=== PATIENT | female | born 1945 | race Caucasian/White ===

== ENCOUNTER 2016-09-30 13:40 | Inpatient (IN) | payer MEDICARE, OTHER ==
[~2016-09-30 13:40] MED LIST: ASPIRIN EC81 MG PO; CALCIUM CARBON500 M2 PO; FISH OIL 1,0001 EA10 PO; HYDROCODON-ACE1 EA16 PO; LYSINE500 M3 PO; MOBIC7.5 M2 PO; MULTIVITAMINS1 EAC6 PO; OMEGA-3 + VITA1 EAC2 PO; OMEPRAZOLE20 M3 PO; OXYCODONE HCL5 M1 PO; POTASSIUM CHLO10 ME2 PO; SENOKOT-S TABL1 EACH PO; SUPER B COMPLE150 M1 PO; TYLENOL325 M2 PO; ULTRAM50 M1 PO; VITAMIN B-1100 M3 PO; VITAMIN B-650 M2 PO; VITAMIN B125000 MCG; VITAMIN B125000 MCG PO; VITAMIN C500 M3 PO; VITAMIN D31000 UNI3 PO; XARELTO10 M1 PO
[2016-09-30 15:45] LABS: BASO % 0.8 % (0-2); BASO ABSOLUTE COUNT 0.1 tho/cmm (0.0-0.2); EOS % 1.8 % (0-7); EOSINOPHIL ABSOLUTE COUNT 0.2 tho/cmm (0.0-0.7); HCT-HEMATOCRIT 34.5 % (34.0-49.0); HGB-HEMOGLOBIN 11.8 gm/dl (12.0-15.5); IMMATURE GRANULOCYTES ABSOLUTE 0.01 tho/cmm (0-0.03); IMMATURE GRANULOCYTES PERCENT 0.1 % (0-0.3); LYMPH % 20.3 % (20-45); MCH (MEAN CORPUSCULAR HGB) 31.6 pg (28.0-32.0); MCHC MEAN CORPUSCULAR HGB CONC 34.2 % (32.0-36.0); MCV (MEAN CELL VOLUME) 92.5 fl (82.0-96.0); MEAN PLATELET VOLUME 11.8 cmc (9.4-12.4); MONO % 14.1 % (0-12); MONOCYTE ABSOLUTE COUNT 1.4 tho/cmm (0.0-1.2); NEUTROPHIL ABSOLUTE COUNT 6.2 tho/cmm (1.6-8.0); NEUTROPHIL-AUTOMATED 6.2 tho/cmm (1.6-8.0); NEUTROPHILS % 62.9 % (40-80); PLATELET COUNT 257 tho/cmm (150-450); RED BLOOD COUNT 3.73 mil/cmm (4.00-5.20); RED CELL DISTRIBUTION WIDTH 14.1 % (12.4-16.4); WHITE BLOOD COUNT 9.9 tho/cmm (4.0-10.0)
[2016-09-30 15:48] LABS: INR 1.2 INR (0.9-1.1); PROTHROMBIN TIME 13.6 SECONDS (9.0-13.6)
[2016-09-30 15:56] LABS: ANION GAP 12 mmol/L (0-20); BLOOD UREA NITROGEN 15 mg/dl (6-24); CALCIUM 8.6 mg/dl (8.5-10.5); CARBON DIOXIDE-VENOUS 28 mmol/L (22-32); CHLORIDE 103 mmol/l (96-110); CREATININE 0.81 mg/dl (0.50-1.10); GLUCOSE 173 mg/dL (70-110); POTASSIUM 3.5 mmol/L (3.7-5.1); SODIUM 139 mmol/L (135-145); eGFR VALUE FOR BLACK 85 mL/Min
[2016-10-02 06:43] LABS: BASO % 0.7 % (0-2); BASO ABSOLUTE COUNT 0.1 tho/cmm (0.0-0.2); EOS % 1.8 % (0-7); EOSINOPHIL ABSOLUTE COUNT 0.3 tho/cmm (0.0-0.7); HCT-HEMATOCRIT 31.5 % (34.0-49.0); HGB-HEMOGLOBIN 10.4 gm/dl (12.0-15.5); IMMATURE GRANULOCYTES ABSOLUTE 0.05 tho/cmm (0-0.03); IMMATURE GRANULOCYTES PERCENT 0.4 % (0-0.3); LYMPH % 20.9 % (20-45); LYMPH ABSOLUTE COUNT 2.9 tho/cmm (0.8-4.5); MCH (MEAN CORPUSCULAR HGB) 30.8 pg (28.0-32.0); MCV (MEAN CELL VOLUME) 93.2 fl (82.0-96.0); MEAN PLATELET VOLUME 11.5 cmc (9.4-12.4); MONO % 13.5 % (0-12); MONOCYTE ABSOLUTE COUNT 1.9 tho/cmm (0.0-1.2); NEUTROPHIL ABSOLUTE COUNT 8.8 tho/cmm (1.6-8.0); NEUTROPHIL-AUTOMATED 8.8 tho/cmm (1.6-8.0); NEUTROPHILS % 62.7 % (40-80); PLATELET COUNT 323 tho/cmm (150-450); RED BLOOD COUNT 3.38 mil/cmm (4.00-5.20); RED CELL DISTRIBUTION WIDTH 14.1 % (12.4-16.4)
[2016-10-03 05:45] LABS: ALB/GLOB RATIO 0.7 (0.8-2.0); ALBUMIN 2.6 g/dl (3.5-5.0); ALKALINE PHOSPHATASE 83 U/L (33-138); ALT/SGPT 48 U/L (12-78); ANION GAP 11 mmol/L (0-20); AST/SGOT 32 U/L (10-40); BILIRUBIN,TOTAL 0.3 mg/dl (0-1.5); BLOOD UREA NITROGEN 17 mg/dl (6-24); CALCIUM 10.9 mg/dl (8.5-10.5); CARBON DIOXIDE-VENOUS 30 mmol/L (22-32); CHLORIDE 108 mmol/l (96-110); CREATININE 0.77 mg/dl (0.50-1.10); GLUCOSE 85 mg/dL (70-110); POTASSIUM 4.2 mmol/L (3.7-5.1); PREALBUMIN 11.8 mg/dl (20.0-40.0); SODIUM 145 mmol/L (135-145); eGFR VALUE FOR BLACK >90 mL/Min
[2016-10-03 05:56] LABS: C-REACTIVE PROTEIN 4.3 mg/dl (0-0.9)
[2016-10-04 05:57] LABS: BASO ABSOLUTE COUNT 0.1 tho/cmm (0.0-0.2); EOS % 8.9 % (0-7); HCT-HEMATOCRIT 34.6 % (34.0-49.0); HGB-HEMOGLOBIN 11.7 gm/dl (12.0-15.5); IMMATURE GRANULOCYTES ABSOLUTE 0.05 tho/cmm (0-0.03); IMMATURE GRANULOCYTES PERCENT 0.4 % (0-0.3); LYMPH % 27.9 % (20-45); LYMPH ABSOLUTE COUNT 3.3 tho/cmm (0.8-4.5); MCH (MEAN CORPUSCULAR HGB) 31.1 pg (28.0-32.0); MCHC MEAN CORPUSCULAR HGB CONC 33.8 % (32.0-36.0); MEAN PLATELET VOLUME 10.5 cmc (9.4-12.4); MONO % 15.2 % (0-12); MONOCYTE ABSOLUTE COUNT 1.8 tho/cmm (0.0-1.2); NEUTROPHIL ABSOLUTE COUNT 5.4 tho/cmm (1.6-8.0); NEUTROPHIL-AUTOMATED 5.4 tho/cmm (1.6-8.0); NEUTROPHILS % 46.6 % (40-80); PLATELET COUNT 405 tho/cmm (150-450); RED BLOOD COUNT 3.76 mil/cmm (4.00-5.20); RED CELL DISTRIBUTION WIDTH 14.1 % (12.4-16.4); WHITE BLOOD COUNT 11.7 tho/cmm (4.0-10.0)
[2016-10-04 06:11] LABS: ALBUMIN 2.5 g/dl (3.5-5.0); ANION GAP 9 mmol/L (0-20); BLOOD UREA NITROGEN 15 mg/dl (6-24); C-REACTIVE PROTEIN 3.3 mg/dl (0-0.9); CALCIUM 9.9 mg/dl (8.5-10.5); CARBON DIOXIDE-VENOUS 30 mmol/L (22-32); CHLORIDE 108 mmol/l (96-110); CREATININE 0.74 mg/dl (0.50-1.10); GLUCOSE 88 mg/dL (70-110); PHOSPHOROUS 4.1 mg/dl (2.5-4.9); SODIUM 143 mmol/L (135-145); eGFR VALUE FOR BLACK >90 mL/Min
[2016-10-04] MEDS ORDERED: NORCO 5-325 TA1 EACH PO (09:54)
[2016-10-04] MEDS ORDERED: VANCOMYCIN HCL500 MG IV (10:19)
[2016-10-04] MEDS ORDERED: MOBIC7.5 M2 PO (12:38)
[2016-10-04] MEDS ORDERED: PERCOCET 5-3251 EACH PO (12:39)
[2017-02-12] MEDS ORDERED: VIBRAMYCIN100 M1 PO (09:32)
[2017-02-18] MEDS ORDERED: MOBIC7.5 M2 PO (11:03)
[2017-02-18] MEDS ORDERED: TYLENOL325 M2 PO (11:04)
[2017-02-18] MEDS ORDERED: ROXICODONE5 M2 PO (11:05)
[2017-02-18] MEDS ORDERED: DIFLUCAN200 M1 PO (11:06)
[2017-02-18] MEDS ORDERED: VANCOMYCIN HCL500 MG PO (11:07)
== END 2016-10-04 13:04 | DRG 468 ==
LOC: 5EB 13:40 → ORE 10-01 06:56 → PACU 10-01 08:42 → 5EB 10-01 10:15
PROVIDERS: Internal Medicine Infectious Disease; Physician Assistant; Physician Assistant Surgical; ADMIT Orthopaedic Surgery Foot and Ankle Surgery
PROC: 0SRB02Z Replacement of Left Hip Joint with Metal on Polyethylene Synthetic Substitute, Open Approach (ICD-10-PCS; principal; 2016-10-01)
PROC: 0SPB0JZ Removal of Synthetic Substitute from Left Hip Joint, Open Approach (ICD-10-PCS; 2016-10-01)
PROC: 3E0U029 Introduction of Other Anti-infective into Joints, Open Approach (ICD-10-PCS; 2016-10-01)
DX: T84.53XA Infection and inflammatory reaction due to internal right knee prosthesis, initial encounter (principal); I34.0 Nonrheumatic mitral (valve) insufficiency; I10 Essential (primary) hypertension; F41.9 Anxiety disorder, unspecified; G89.29 Other chronic pain; Z95.0 Presence of cardiac pacemaker; K21.9 Gastro-esophageal reflux disease without esophagitis; R01.1 Cardiac murmur, unspecified; F32.9 Major depressive disorder, single episode, unspecified
CPT/HCPCS: C1713; C1751; C1776; G8987-GO-CJ; G8988-GO-CI; G8989-GO-CJ; J0171; J1885; J2270; J2795; J3370; J7030; J7050

== ENCOUNTER 2016-11-14 11:14 | Inpatient (IN) | payer MEDICARE, OTHER ==
[~2016-11-14 11:14] MED LIST changes: +NORCO 5-325 TA1 EACH PO; +PERCOCET 5-3251 EACH PO; +VANCOMYCIN HCL500 MG IV
[2016-11-14 12:17] LABS: BASO % 1.8 % (0-2); BASO ABSOLUTE COUNT 0.1 tho/cmm (0.0-0.2); EOS % 5.1 % (0-7); EOSINOPHIL ABSOLUTE COUNT 0.3 tho/cmm (0.0-0.7); HCT-HEMATOCRIT 40.3 % (34.0-49.0); HGB-HEMOGLOBIN 13.2 gm/dl (12.0-15.5); IMMATURE GRANULOCYTES ABSOLUTE 0.01 tho/cmm (0-0.03); IMMATURE GRANULOCYTES PERCENT 0.1 % (0-0.3); LYMPH % 35.6 % (20-45); LYMPH ABSOLUTE COUNT 2.4 tho/cmm (0.8-4.5); MCH (MEAN CORPUSCULAR HGB) 30.3 pg (28.0-32.0); MCHC MEAN CORPUSCULAR HGB CONC 32.8 % (32.0-36.0); MCV (MEAN CELL VOLUME) 92.4 fl (82.0-96.0); MEAN PLATELET VOLUME 11.7 cmc (9.4-12.4); MONO % 9.6 % (0-12); MONOCYTE ABSOLUTE COUNT 0.6 tho/cmm (0.0-1.2); NEUTROPHIL ABSOLUTE COUNT 3.2 tho/cmm (1.6-8.0); NEUTROPHIL-AUTOMATED 3.2 tho/cmm (1.6-8.0); NEUTROPHILS % 47.8 % (40-80); PLATELET COUNT 267 tho/cmm (150-450); RED BLOOD COUNT 4.36 mil/cmm (4.00-5.20); RED CELL DISTRIBUTION WIDTH 14.4 % (12.4-16.4); WHITE BLOOD COUNT 6.7 tho/cmm (4.0-10.0)
[2016-11-14 12:21] LABS: PROTHROMBIN TIME 11.9 SECONDS (9.0-13.6)
[2016-11-14 12:28] LABS: ANION GAP 13 mmol/L (0-20); BLOOD UREA NITROGEN 11 mg/dl (6-24); CALCIUM 9.2 mg/dl (8.5-10.5); CARBON DIOXIDE-VENOUS 28 mmol/L (22-32); CHLORIDE 106 mmol/l (96-110); CREATININE 0.82 mg/dl (0.50-1.10); GLUCOSE 88 mg/dL (70-110); POTASSIUM 3.9 mmol/L (3.7-5.1); SODIUM 143 mmol/L (135-145); eGFR VALUE FOR BLACK 84 mL/Min
[2017-02-12] MEDS ORDERED: VIBRAMYCIN100 M1 PO (09:32)
[2017-02-18] MEDS ORDERED: MOBIC7.5 M2 PO (11:03)
[2017-02-18] MEDS ORDERED: TYLENOL325 M2 PO (11:04)
[2017-02-18] MEDS ORDERED: ROXICODONE5 M2 PO (11:05)
[2017-02-18] MEDS ORDERED: DIFLUCAN200 M1 PO (11:06)
[2017-02-18] MEDS ORDERED: VANCOMYCIN HCL500 MG PO (11:07)
== END 2016-11-14 14:40 | DRG 561 ==
LOC: SHSA 11:14
PROVIDERS: ADMIT Orthopaedic Surgery Foot and Ankle Surgery
DX: Z47.1 Aftercare following joint replacement surgery (principal); H26.9 Unspecified cataract; Z53.8 Procedure and treatment not carried out for other reasons; Z96.652 Presence of left artificial knee joint; Z95.0 Presence of cardiac pacemaker; M47.9 Spondylosis, unspecified; Z79.82 Long term (current) use of aspirin